=== PATIENT | male | born 1970 | race Caucasian/White ===

== ENCOUNTER 2017-10-15 16:20 | Emergency (ER) | payer SELFPAY ==
--- NOTE | 2017-10-15 17:44 | EDPHYS ---
Physician Documentation [facility] Name: Helio Lord Jr Age: 47 yrs Sex: Male : 1970 Arrival Date: 10/15/2017 Time: 16:21 Bed 5 Private MD: ED Physician Cody Liu HPI: 10/15 17:41 This 47 yrs old Male presents to ER via Ambulatory with complaints of Flu kb Symptoms. 17:41 The patient or guardian reports cough, that is intermittent, described as mild, kb described as moderate, with no sputum, flu symptoms, low-grade fever, myalgias. Onset: The symptoms/episode began/occurred 4 day(s) ago. Severity of symptoms: At their worst the symptoms were moderate, in the emergency department the symptoms are unchanged. Modifying factors: The symptoms are alleviated by nothing, the symptoms are aggravated by nothing. Associated signs and symptoms: Pertinent positives: fever, rhinorrhea, Pertinent negatives: chest pain, diarrhea, ear ache, nausea, sore throat, vomiting. The patient has not experienced similar symptoms in the past, but family has similar symptoms, significant other, daughter. The patient has not recently seen a physician. Historical: - Allergies: 16:37 Morphine (Vomiting); hb - Home Meds: 16:37 None [Active]; hb - PMHx: 16:37 Hepatitis; hb - PSHx: 16:37 None; hb - Immunization history:: Adult Immunizations up to date. - Social history:: Smoking status: Patient uses tobacco products, smokes one pack cigarettes per day. ROS: 17:41 Neck: Negative for injury, pain, and swelling, Cardiovascular: Negative for chest pain, kb palpitations, and edema, Abdomen/GI: Negative for abdominal pain, nausea, vomiting, diarrhea, and constipation, Back: Negative for injury and pain, : Negative for injury, bleeding, discharge, and swelling, MS/Extremity: Negative for injury and deformity, Skin: Negative for injury, rash, and discoloration, Neuro: Negative for headache, weakness, numbness, tingling, and seizure. 17:41 Constitutional: Positive for body aches, chills, fatigue, fever, malaise, Negative for poor PO intake, weight loss. 17:41 ENT: Positive for rhinorrhea, sinus congestion, sore throat. 17:41 Respiratory: Positive for cough, with no reported sputum, Negative for dyspnea on exertion, hemoptysis, orthopnea, pleurisy, shortness of breath, sputum production, wheezing. Exam: 17:41 Constitutional: This is a well developed, well nourished patient who is awake, alert, kb and in no acute distress. Head/Face: Normocephalic, atraumatic. ENT: Nares patent. No nasal discharge, no septal abnormalities noted. Tympanic membranes are normal and external auditory canals are clear. Oropharynx with no redness, swelling, or masses, exudates, or evidence of obstruction, uvula midline. Mucous membranes moist. Neck: Trachea midline, no thyromegaly or masses palpated, and no cervical lymphadenopathy. Supple, full range of motion without nuchal rigidity, or vertebral point tenderness. No Meningismus. Chest/axilla: Normal chest wall appearance and motion. Nontender with no deformity. No lesions are appreciated. Cardiovascular: Regular rate and rhythm with a normal S1 and S2. No gallops, murmurs, or rubs. Normal PMI, no JVD. No pulse deficits. Respiratory: Lungs have equal breath sounds bilaterally, clear to auscultation and percussion. No rales, rhonchi or wheezes noted. No increased work of breathing, no retractions or nasal flaring. Abdomen/GI: Soft, non-tender, with normal bowel sounds. No distension or tympany. No guarding or rebound. No evidence of tenderness throughout. Skin: Warm, dry with normal turgor. Normal color with no rashes, no lesions, and no evidence of cellulitis. MS/ Extremity: Pulses equal, no cyanosis. Neurovascular intact. Full, normal range of motion. Neuro: Awake and alert, GCS 15, oriented to person, place, time, and situation. Cranial nerves II-XII grossly intact. Motor strength 5/5 in all extremities. Sensory grossly intact. Cerebellar exam normal. Normal gait. Vital Signs: 16:37 BP 126 / 89; Pulse 96; Resp 18; Temp 99.7; Pulse Ox 97% on R/A; Weight 80.74 kg; Height hb 5 ft. 8 in. (172.72 cm); Pain 8/10; 16:37 Body Mass Index 27.06 (80.74 kg, 172.72 cm) hb MDM: 16:42 Patient medically screened. kb 17:41 Data reviewed: vital signs, nurses notes. Data interpreted: Pulse oximetry: on room air kb is 97 %. Interpretation: normal. Counseling: I had a detailed discussion with the patient and/or guardian regarding: the historical points, exam findings, and any diagnostic results supporting the discharge/admit diagnosis, lab results, the need for outpatient follow up, a family practitioner, to return to the emergency department if symptoms worsen or persist or if there are any questions or concerns that arise at home. 10/15 16:47 Order name: Flu; Complete Time: 17:31 kb 10/15 16:47 Order name: Strep; Complete Time: 17:31 kb 10/15 17:28 Order name: Throat Culture EDMS Administered Medications: No medications were administered Disposition: 10/16 06:59 Co-signature as Attending Physician, Cody Liu MD I agree with the assessment and cindy plan of care. Disposition: 10/15/17 17:43 Discharged to Home. Impression: Acute upper respiratory infection, unspecified. - Condition is Stable. - Discharge Instructions: Upper Respiratory Infection, Adult, [id number]. - Medication Reconciliation Form, Thank You Letter, Antibiotic Education, Prescription Opioid Use form. - Follow up: Emergency Department; When: As needed; Reason: Worsening of condition. Follow up: Private Physician; When: 2 - 3 days; Reason: Recheck today's complaints, Continuance of care, Re-evaluation by your physician. Signatures: Dispatcher [employer] EDRosario Encarnacion, PATTI-C RESOURCE PROTECTION SPECIALIST-Ckb Uyen Bridges RN RN sv Anderson, Corey, MD MD cha Baxter, Heather, RN RN
--- NOTE | 2017-10-15 17:44 | ER ---
Nurse's Notes [facility] Name: Helio Lord Jr Age: 47 yrs Sex: Male : 1970 Arrival Date: 10/15/2017 Time: 16:21 Bed 5 Private MD: Diagnosis: Acute upper respiratory infection, unspecified Presentation: 10/15 16:34 Presenting complaint: Patient states: Chills, body aches, fatigue, sinus congestin, hb productive cough with yellow sputum x 4 days. Transition of care: patient was not received from another setting of care. Onset of symptoms is unknown. Care prior to arrival: None. 16:34 Method Of Arrival: Ambulatory hb 16:34 Acuity: TIERNEY 3 hb Historical: - Allergies: 16:37 Morphine (Vomiting); hb - Home Meds: 16:37 None [Active]; hb - PMHx: 16:37 Hepatitis; hb - PSHx: 16:37 None; hb - Immunization history:: Adult Immunizations up to date. - Social history:: Smoking status: Patient uses tobacco products, smokes one pack cigarettes per day. Screenin:55 Abuse screen: Denies threats or abuse. Denies injuries from another. Nutritional sv screening: No deficits noted. Tuberculosis screening: No symptoms or risk factors identified. Fall Risk None identified. Assessment: 16:54 General: Appears in no apparent distress. comfortable, well developed, Behavior is sv calm, cooperative, appropriate for age. Pain: Complains of pain in throat Pain currently is 8 out of 10 on a pain scale. Neuro: Level of Consciousness is awake, alert, obeys commands, Oriented to person, place, time, situation, Moves all extremities. Full function Gait is steady, Speech is normal. Respiratory: Reports cough that is productive, yellow x 4 days Airway is patent Respiratory effort is even, unlabored, Respiratory pattern is regular, symmetrical. EENT: Reports nasal congestion nasal discharge. Derm: Skin is normal. Musculoskeletal: Range of motion: intact in all extremities. 16:55 General: Reports fatigue for >3 days. sv 17:47 Reassessment: Patient appears in no apparent distress at this time. No changes from sv previously documented assessment. Patient and/or family updated on plan of care and expected duration. Pain level reassessed. Patient is alert, oriented x 3, equal unlabored respirations, skin warm/dry/pink. Vital Signs: 16:37 BP 126 / 89; Pulse 96; Resp 18; Temp 99.7; Pulse Ox 97% on R/A; Weight 80.74 kg; Height hb 5 ft. 8 in. (172.72 cm); Pain 8/10; 16:37 Body Mass Index 27.06 (80.74 kg, 172.72 cm) hb ED Course: 16:21 Patient arrived in ED. as 16:35 Triage completed. hb 16:37 Arm band placed on left wrist. hb 16:41 Rosario Jeong FNP-C is PHCP. kb 16:41 Cody Liu MD is Attending Physician. kb 16:47 Uyen Bridges, FILOMENA is Primary Nurse. sv 16:54 Flu and/or RSV swab sent to lab. Strep swab sent to lab. sv 16:55 Awaiting lab results. sv 16:55 Patient has correct armband on for positive identification. Bed in low position. Call sv light in reach. Door closed. Head of bed elevated. 17:47 No provider procedures requiring assistance completed. Patient did not have IV access sv during this emergency room visit. Administered Medications: No medications were administered Outcome: 17:43 Discharge ordered by MD. kb 17:47 Discharged to home ambulatory, with family. sv 17:47 Condition: stable 17:47 Discharge instructions given to patient, Instructed on discharge instructions, follow up and referral plans. Demonstrated understanding of instructions, follow-up care. 17:48 Patient left the ED. sv Signatures: Rosario Jeong FNP-C DISC PAD GRINDING MACHINE FEEDER-Ckb Uyen Bridges, FILOMENA BUTT Echo Mattson Heather, RN RN Corrections: (The following items were deleted from the chart) 16:55 16:54 Respiratory: Reports cough that is non-productive, Airway is patent Respiratory sv effort is even, unlabored, Respiratory pattern is regular, symmetrical, sv
== END 2017-10-15 17:48 | disposition home or self-care (01) ==
LOC: ER 16:20
DX: J06.9 Acute upper respiratory infection, unspecified (principal); F17.210 Nicotine dependence, cigarettes, uncomplicated; Z88.5 Allergy status to narcotic agent
CPT/HCPCS: 87070; 87081; 87804; 99283

== ENCOUNTER 2020-10-16 16:08 | Emergency (ER) | payer SELFPAY ==
--- OUTSIDE RECORDS SUMMARY | 2020-10-16 16:12 | XMS REPORT | Continuity of Care Document ---
:1970 Author Organization [facility] t Address [address] [place] [address] Care Team Providers Name Role Phone Aureliano ARMSTRONG Attending Clinician Problems This patient has no known problems. Allergies, Adverse Reactions, Alerts This patient has no known allergies or adverse reactions. Medications This patient has no known medications. Procedures This patient has no known procedures. Encounters Start End Encounter Admission Attending Care Care Encounter Source Date/Time Date/Time Type Type Clinicians Facility Department ID 2019-02-22 2019-02-22 Emergency Aureliano, TRAUMA [id number] 11:33:52 15:08:00 [facility] [id number] Results This patient has no known results.
[2020-10-16] MEDS ORDERED: FENTANYL CITR 100 MCG/2 ML ONE (16:43)
--- NOTE | 2020-10-16 17:11 | RAD REPORT ---
EXAM DESCRIPTION: CT - Chest Abdomen Pelvis W Cont - 10/16/2020 4:53 pm CLINICAL HISTORY: Chest and abdomen pain. PAIN COMPARISON: No comparisons TECHNIQUE: Approximately 100 mL nonionic IV contrast was administered to the patient. All CT scans are performed using dose optimization technique as appropriate and may include automated exposure control or mA/KV adjustment according to patient size. FINDINGS: The lungs are clear.No pleural or pericardial effusion.No intrathoracic adenopathy. Several vague low-density hepatic lesions are present, the largest the right lobe measuring 2 cm. No biliary dilatation seen. The spleen, pancreas, adrenal glands and kidneys are within normal limits. No bowel obstruction, free air, free fluid or abscess. Normal appendix. Moderate fat containing right inguinal hernia. No pathologic lymphadenopathy in the abdomen or pelvis. No acute fracture is evident. IMPRESSION: No acute abnormality is detected. Several vague low-density hepatic lesions are present. Followup nonemergent MRI liver protocol would be recommended for further assessment.
[2020-10-16 17:17] LABS: Absolute Lymphocytes (CBC) 5.5 K/uL (0.7-4.9); Hematocrit 44.3 % (39.6-49.0); Lymphocytes % 34.4 % (15.3-44.8); MPV 9.2 fL (7.6-11.3); RBC Red Blood Cell Count 4.89 M/uL (4.33-5.43)
[2020-10-16 17:26] LABS: Potassium 3.7 mmol/L (3.5-5.1)
--- NOTE | 2020-10-16 17:27 | RAD REPORT ---
EXAM DESCRIPTION: RAD - Femur Right - 10/16/2020 5:20 pm CLINICAL HISTORY: PAIN COMPARISON: No comparisons FINDINGS: No acute fracture or dislocation is seen.
[2020-10-16] MEDS ORDERED: NA CHLORIDE 0.9% 1,000 ML ONE (18:08)
[2020-10-16] MEDS ORDERED: DIAZEPAM 10 MG/2 ML INJ SYRINGE ONE (19:11)
[2020-10-16] MEDS ORDERED: KETOROLAC 30 MG/ML INJ ONE (19:12)
--- NOTE | 2020-10-16 19:30 | ER ---
Nurse's Notes [facility] Name: Helio Lord Jr Age: 50 yrs Sex: Male : 1970 Arrival Date: 10/16/2020 Time: 16:09 Bed 2 Private MD: Diagnosis: Strain of muscle, fascia and tendon of right hip;Contusion of right hip Presentation: 10/16 16:17 Chief complaint:. Care prior to arrival: None. jl7 16:17 Acuity: TIERNEY 2 jl7 16:17 Method Of Arrival: Stretcher jl7 16:17 Chief complaint: Patient states: a 300 lb pole fell on his right side, c/o right hip jl7 and right flank pain. Mechanism of Injury: blunt trauma to right side. Trauma event details: Injury occurred in the [facility], Injury occurred: in a public building. Injury occurred: October 16, 2020 Injury occurred at: 15:15. 16:37 Coronavirus screen: Client denies travel out of the [place] in the last 14 days. At this jl7 time, the client does not indicate any symptoms associated with coronavirus-19. Ebola Screen: No symptoms or risks identified at this time. Initial Sepsis Screen: Does the patient meet any 2 criteria? No. Patient's initial sepsis screen is negative. Does the patient have a suspected source of infection? No. Patient's initial sepsis screen is negative. Risk Assessment: Do you want to hurt yourself or someone else? Patient reports no desire to harm self or others. Onset of symptoms was October 16, 2020. Historical: - Allergies: 16:38 Morphine (Vomiting); jl7 - PMHx: 16:38 Hepatitis; jl7 - PSHx: 16:38 None; jl7 - Immunization history:: Adult Immunizations up to date. - Social history:: Smoking status: Patient reports the use of cigarette tobacco products, smokes one pack cigarettes per day. Patient uses street drugs, marijuana. - Immunization history: Last tetanus immunization: unknown. Screenin:17 Abuse screen: Denies threats or abuse. Denies injuries from another. Tuberculosis jl7 screening: No symptoms or risk factors identified. 18:52 Nutritional screening: No deficits noted. Fall Risk IV access (20 points). Total Ray jl7 Fall Scale indicates No Risk (0-24 pts). Primary Survey: 16:17 NO uncontrolled hemorrhage observed. A: The patient is alert. Airway: patent. jl7 Breathing/Chest: Respiratory pattern: tachypnea, Respiratory effort: spontaneous, unlabored, Chest inspection: symmetrical rise and fall of the chest. Circulation: Skin color: pink. Disability Alert. Exposure/Environment: All clothing and personal items were removed. Forensic evidence collection is not deemed to be indicated at this time. Items placed in patient belonging bag. There is no evidence of uncontrolled external bleeding. No obvious injuries are noted at this time. A warming method has been applied: A warm blanket has been provided to the patient. 16:45 Reassessment Airway Airway Patent Breathing/Chest Respiratory pattern Regular jl7 Respiratory effort Spontaneous Unlabored Circulation Color [place] Disability Alert. Assessment: 16:17 General: Appears in no apparent distress. uncomfortable, Behavior is cooperative, jl7 appropriate for age, anxious. Pain: Complains of pain in anterior aspect of right lateral abdomen and posterior aspect of right lateral abdomen Pain currently is 10 out of 10 on a pain scale. Neuro: Level of Consciousness is awake, alert, obeys commands, Oriented to person, place, time, situation. Cardiovascular: Patient's skin is warm and dry. Respiratory: Airway is patent Respiratory effort is even, unlabored, Respiratory pattern is symmetrical, tachypnea. Derm: Skin is pink, warm \T\ dry. Musculoskeletal:. Musculoskeletal: Tenderness present in anterior aspect of right lateral abdomen, posterior aspect of right lateral abdomen and pelvis. 17:00 Reassessment: Patient appears in no apparent distress at this time. Patient and/or jl7 family updated on plan of care and expected duration. Pain level reassessed. Patient is alert, oriented x 3, equal unlabored respirations, skin warm/dry/pink. 18:00 Reassessment: ERP at bedside discussing results and POC. jl7 19:00 Reassessment: Patient and/or family updated on plan of care and expected duration. Pain ea level reassessed. Patient is alert, oriented x 3, equal unlabored respirations, skin warm/dry/pink. 20:00 Reassessment: Patient and/or family updated on plan of care and expected duration. Pain ea level reassessed. Patient is alert, oriented x 3, equal unlabored respirations, skin warm/dry/pink. Discharge instruction given to patient verbalized the understanding of instruction. Pt left ED via wheelchair accompanied by family. Vital Signs: 16:17 BP 137 / 115; Pulse 89; Resp 22; Temp 97.9; Pulse Ox 98% ; Pain 10/10; jl7 16:45 BP 115 / 78; Pulse 64; Resp 17; Pulse Ox 97% ; Pain 5/10; jl7 17:30 BP 115 / 78; Pulse 64; Resp 15; Pulse Ox 97% ; jl7 18:09 BP 119 / 76; Pulse 65; Resp 17; Pulse Ox 97% ; jl7 18:45 BP 124 / 84; Pulse 67; Resp 15; Pulse Ox 98% ; jl7 Sonny Coma Score: 16:17 Eye Response: spontaneous(4). Verbal Response: oriented(5). Motor Response: obeys jl7 commands(6). Total: 15. 16:45 Eye Response: spontaneous(4). Verbal Response: oriented(5). Motor Response: obeys jl7 commands(6). Total: 15. 17:30 Eye Response: spontaneous(4). Verbal Response: oriented(5). Motor Response: obeys jl7 commands(6). Total: 15. 18:45 Eye Response: spontaneous(4). Verbal Response: oriented(5). Motor Response: obeys jl7 commands(6). Total: 15. Trauma Score (Adult): 16:17 Eye Response: spontaneous(1); Verbal Response: oriented(1); Motor Response: obeys jl7 commands(2); Systolic BP: > 89 mm Hg(4); Respiratory Rate: 10 to 29 per min(4); [place] Score: 15; Trauma Score: 12 18:09 Eye Response: spontaneous(1); Verbal Response: oriented(1); Motor Response: obeys jl7 commands(2); Systolic BP: > 89 mm Hg(4); Respiratory Rate: 10 to 29 per min(4); [place] Score: 15; Trauma Score: 12 ED Course: 16:09 Patient arrived in ED. as 16:17 Patient has correct armband on for positive identification. Placed in gown. Bed in low jl7 position. Call light in reach. Side rails up X2. 16:17 Pulse ox on. NIBP on. jl7 16:17 Warm blanket given. jl7 16:17 Patient maintains SpO2 saturation greater than 95% on room air. Thermoregulation: warm jl7 blanket given to patient. 16:17 Initial lab(s) drawn, by me, sent to lab. Inserted saline lock: 20 gauge in right jl7 antecubital area, using aseptic technique. Blood collected. 16:18 Otis Angulo NP is PHCP. pm1 16:18 Lynn Simon MD is Attending Physician. pm1 16:31 Carol Sims RN is Primary Nurse. jl7 16:31 Triage completed. jl7 16:38 Arm band placed on right wrist. jl7 16:52 CT Chest, Abdomen, Pelvis - W/Contrast In Process Unspecified. EDMS 17:18 Femur Right XRAY In Process Unspecified. EDMS 19:29 Sundeep Mcnair MD is Referral Physician. pm1 20:10 IV discontinued, intact, bleeding controlled, No redness/swelling at site. Pressure ea dressing applied. 20:16 No provider procedures requiring assistance completed. ea Administered Medications: 16:45 Drug: fentaNYL (PF) 50 mcg Route: IVP; Site: right antecubital; jl7 17:00 Follow up: Response: No adverse reaction; Pain is decreased jl7 17:50 Drug: NS 0.9% 1000 ml Route: IV; Rate: 1000 ml; Site: right antecubital; jl7 17:50 Drug: fentaNYL (PF) 50 mcg Route: IVP; Site: right antecubital; jl7 18:00 Follow up: Response: No adverse reaction; Pain is decreased jl7 18:57 Drug: TORadol - Ketorolac 15 mg Route: IVP; Site: right antecubital; jl7 20:15 Follow up: Response: No adverse reaction ea 19:01 Drug: Valium (diazepam) 5 mg Route: IVP; Site: right antecubital; jl7 20:00 Follow up: Response: No adverse reaction ea 19:09 Not Given (Patient Refused): Zofran (Ondansetron) 4 mg IVP once; over 2 minutes jl7 Outcome: 19:29 Discharge ordered by . pm1 20:07 Patient left the ED. ea 20:10 Discharged to home via wheelchair, with family. ea 20:10 Condition: stable 20:10 Discharge instructions given to patient, Instructed on discharge instructions, follow up and referral plans. medication usage, Demonstrated understanding of instructions, follow-up care, medications. Signatures: Dispatcher [employer] Echo Garcia Patrick, CLOTH WINDER CLOTH WINDER pm1 Carol Sims RN RN [id number] Clementina Forrest RN RN ea Corrections: (The following items were deleted from the chart) 18:51 18:09 BP 199 / 76; Pulse 65bpm; Resp 17bpm; Pulse Ox 97%; leon quintero
--- NOTE | 2020-10-16 19:30 | EDPHYS ---
Physician Documentation [facility] Name: Helio Lord Jr Age: 50 yrs Sex: Male : 1970 Arrival Date: 10/16/2020 Time: 16:09 Bed 2 Private MD: ED Physician Lynn Simon HPI: 10/16 16:35 This 50 yrs old Male presents to ER via Stretcher with complaints of Hip pm1 Injury. 16:35 The patient or guardian reports pain. that occurred outdoors, sustained from a direct pm1 blow, by a heavy object, There is no obvious deformity, There is no radiation of the patient's discomfort. Patient reports pain with trying to stand on right leg. The complaints affect the right hip. Onset: The symptoms/episode began/occurred just prior to arrival. Modifying factors: The symptoms are alleviated by remaining still, the symptoms are aggravated by weight bearing. Associated signs and symptoms: Loss of consciousness: the patient experienced no loss of consciousness, Pertinent negatives: abdominal pain, chest pain, headache, head injury, neck pain. Severity of symptoms: in the emergency department the symptoms are unchanged. The patient has not experienced similar symptoms in the past. Patient was outside his truck and his cargo that weighs about 300-400 pounds was sliding off. He instinctively attempted to catch it to prevent it from hitting his right leg, but it hit his right hip. The impact caused him to spin to the right side and he fell down with catching himself with both hands. Did not injure his head or neck. Historical: - Allergies: 16:38 Morphine (Vomiting); jl7 - PMHx: 16:38 Hepatitis; jl7 - PSHx: 16:38 None; jl7 - Immunization history:: Adult Immunizations up to date. - Social history:: Smoking status: Patient reports the use of cigarette tobacco products, smokes one pack cigarettes per day. Patient uses street drugs, marijuana. - Immunization history: Last tetanus immunization: unknown. ROS: 16:49 Constitutional: Negative for fever, chills, and weight loss, Cardiovascular: Negative pm1 for chest pain, palpitations, and edema, Respiratory: Negative for shortness of breath, cough, wheezing, and pleuritic chest pain, Abdomen/GI: Negative for abdominal pain, nausea, vomiting, diarrhea, and constipation, Back: Negative for injury and pain. 16:49 Skin: Negative for injury, rash, and discoloration, Neuro: Negative for headache, weakness, numbness, tingling, and seizure. 16:49 MS/extremity: Positive for pain, of the right leg and right hip. Exam: 16:49 Constitutional: This is a well developed, well nourished patient who is awake, alert, pm1 and in no acute distress. Head/Face: Normocephalic, atraumatic. 16:49 Neck: Trachea midline, no thyromegaly or masses palpated, and no cervical lymphadenopathy. Supple, full range of motion without nuchal rigidity, or vertebral point tenderness. No Meningismus. Chest/axilla: Normal chest wall appearance and motion. Nontender with no deformity. No lesions are appreciated. 16:49 Skin: Warm, dry with normal turgor. Normal color with no rashes, no lesions, and no evidence of cellulitis. 16:49 Cardiovascular: Exam negative for acute changes, Rate: normal, Rhythm: regular, Pulses: no pulse deficits are appreciated. 16:49 Respiratory: Exam negative for acute changes, respiratory distress, shortness of breath. 16:49 Abdomen/GI: Exam negative for acute changes, Inspection: abdomen appears normal, Palpation: abdomen is soft and non-tender. 16:49 Back: Exam negative for acute changes, pain, is absent, normal spinal alignment noted, vertebral tenderness, is not appreciated. 16:49 Musculoskeletal/extremity: Extremities: all appear grossly normal, with no appreciated pain with palpation, ROM: intact in all extremities. 16:49 Neuro: Exam negative for acute changes, Orientation: is normal, Mentation: is normal, Motor: is normal, moves all fours, Sensation: is normal, no obvious gross deficits. Vital Signs: 16:17 BP 137 / 115; Pulse 89; Resp 22; Temp 97.9; Pulse Ox 98% ; Pain 10/10; jl7 16:45 BP 115 / 78; Pulse 64; Resp 17; Pulse Ox 97% ; Pain 5/10; jl7 17:30 BP 115 / 78; Pulse 64; Resp 15; Pulse Ox 97% ; jl7 18:09 BP 119 / 76; Pulse 65; Resp 17; Pulse Ox 97% ; jl7 18:45 BP 124 / 84; Pulse 67; Resp 15; Pulse Ox 98% ; jl7 Sonny Coma Score: 16:17 Eye Response: spontaneous(4). Verbal Response: oriented(5). Motor Response: obeys jl7 commands(6). Total: 15. 16:45 Eye Response: spontaneous(4). Verbal Response: oriented(5). Motor Response: obeys jl7 commands(6). Total: 15. 17:30 Eye Response: spontaneous(4). Verbal Response: oriented(5). Motor Response: obeys jl7 commands(6). Total: 15. 18:45 Eye Response: spontaneous(4). Verbal Response: oriented(5). Motor Response: obeys jl7 commands(6). Total: 15. Trauma Score (Adult): 16:17 Eye Response: spontaneous(1); Verbal Response: oriented(1); Motor Response: obeys jl7 commands(2); Systolic BP: > 89 mm Hg(4); Respiratory Rate: 10 to 29 per min(4); Sonny Score: 15; Trauma Score: 12 18:09 Eye Response: spontaneous(1); Verbal Response: oriented(1); Motor Response: obeys jl7 commands(2); Systolic BP: > 89 mm Hg(4); Respiratory Rate: 10 to 29 per min(4); [place] Score: 15; Trauma Score: 12 MDM: 16:24 Patient medically screened. pm1 19:25 ED course: Negative CT abdomen/pelvis for acute finding, negative femur x-ray. Patient pm1 actively able to flex and extend right hip, but with pain. Will discharged patient with crutches for follow up with orthopedics . 19:28 Data reviewed: vital signs. Data interpreted: Pulse oximetry: on room air is 98 %. pm1 Interpretation: normal. Counseling: I had a detailed discussion with the patient and/or guardian regarding: the historical points, exam findings, and any diagnostic results supporting the discharge/admit diagnosis, lab results, radiology results, the need for outpatient follow up, a orthopedic surgeon, to return to the emergency department if symptoms worsen or persist or if there are any questions or concerns that arise at home. 10/16 16:26 Order name: Basic Metabolic Panel; Complete Time: 17:47 pm1 10/16 16:26 Order name: CBC with Diff; Complete Time: 17:47 pm1 10/16 16:26 Order name: Type And Screen; Complete Time: 19:13 pm1 10/16 16:26 Order name: CT Chest, Abdomen, Pelvis - W/Contrast; Complete Time: 17:20 pm1 10/16 16:26 Order name: Femur Right XRAY; Complete Time: 17:47 pm1 10/16 19:52 Order name: ABO/RH no charge EDMS 10/16 16:26 Order name: Labs collected and sent; Complete Time: 16:49 pm1 10/16 16:26 Order name: IV Saline Lock; Complete Time: 16:49 pm1 10/16 18:22 Order name: Labs - recollect needed: collect abo\E\rh no charge; Complete Time: 19:01 bd Administered Medications: 16:45 Drug: fentaNYL (PF) 50 mcg Route: IVP; Site: right antecubital; jl7 17:00 Follow up: Response: No adverse reaction; Pain is decreased jl7 17:50 Drug: NS 0.9% 1000 ml Route: IV; Rate: 1000 ml; Site: right antecubital; jl7 17:50 Drug: fentaNYL (PF) 50 mcg Route: IVP; Site: right antecubital; jl7 18:00 Follow up: Response: No adverse reaction; Pain is decreased jl7 18:57 Drug: TORadol - Ketorolac 15 mg Route: IVP; Site: right antecubital; jl7 20:15 Follow up: Response: No adverse reaction ea 19:01 Drug: Valium (diazepam) 5 mg Route: IVP; Site: right antecubital; jl7 20:00 Follow up: Response: No adverse reaction ea 19:09 Not Given (Patient Refused): Zofran (Ondansetron) 4 mg IVP once; over 2 minutes jl7 Disposition: 10/17 18:45 Co-signature as Attending Physician, Lynn Simon MD. ma2 Disposition: 10/16/20 19:29 Discharged to Home. Impression: Strain of muscle, fascia and tendon of right hip, Contusion of right hip. - Condition is Stable. - Discharge Instructions: Contusion, Crutch Use, Muscle Strain. - Prescriptions for Zofran ODT 4 mg Oral tablet,disintegrating - place 1 tablet by TRANSLINGUAL route every 8 hours As needed; 20 tablet. Tylenol- Codeine #3 300-30 mg Oral Tablet - take 2 tablets by ORAL route every 4-6 hours As needed; 20 tablet. - Medication Reconciliation Form, Thank You Letter, Antibiotic Education, Prescription Opioid Use, Work release form form. - Follow up: Emergency Department; When: As needed; Reason: Worsening of condition. Follow up: Private Physician; When: 2 - 3 days; Reason: Recheck today's complaints, Continuance of care, Re-evaluation by your physician. Follow up: Sundeep Mcnair MD; When: 2 - 3 days; Reason: Recheck today's complaints, Continuance of care, Re-evaluation by your physician. - Problem is new. - Symptoms have improved. Signatures: Dispatcher [employer] EDMS Jeannie Duran Patrick, NP [employer] A DRIVER pm1 Carol Sims RN RN jl7 Clementina Forrest RN RN Lynn Lopez MD MD ma2 Corrections: (The following items were deleted from the chart) 10/16 19:07 16:26 Urine Dipstick-Ancillary ordered. pm1 jl7 20:07 19:29 10/16/2020 19:29 Discharged to Home. Impression: Strain of muscle, fascia and ea tendon of right hip; Contusion of right hip. Condition is Stable. Forms are Medication Reconciliation Form, Thank You Letter, Antibiotic Education, Prescription Opioid Use. Follow up: Emergency Department; When: As needed; Reason: Worsening of condition. Follow up: Private Physician; When: 2 - 3 days; Reason: Recheck today's complaints, Continuance of care, Re-evaluation by your physician. Follow up: Dr. Sundeep Mcnair; When: 2 - 3 days; Reason: Recheck today's complaints, Continuance of care, Re-evaluation by your physician. Problem is new. Symptoms have improved. pm1
[2020-10-16 21:11] VITALS: TEMP 97.9
[2020-10-20 12:34] VITALS: BP 124/84; O2SAT 98
== END 2020-10-16 20:07 | disposition home or self-care (01) ==
LOC: ER 16:08
DX: S76.011A Strain of muscle, fascia and tendon of right hip, initial encounter (principal); W18.09XA Striking against other object with subsequent fall, initial encounter; Y93.89 Activity, other specified; Y92.89 Other specified places as the place of occurrence of the external cause; Z88.5 Allergy status to narcotic agent; F17.210 Nicotine dependence, cigarettes, uncomplicated
CPT/HCPCS: 36415; 71260; 74177; 80048; 85025; 86850; 86900; 86901; 96374; 96375; 99284; J3010; J3360; J7030; Q9967

== ENCOUNTER 2024-10-27 10:23 | Emergency (ER) | payer OTHER ==
--- OUTSIDE RECORDS SUMMARY | 2024-10-27 10:28 | XMS REPORT | Continuity of Care Document ---
Author Name Unknown Address [address] [place] [address] [facility] Address [address] [place] [address] Care Team Providers Care Habilitation Training Specialist Name Role Phone PATTI DELGADO Primary Care Physician + ROBERT ALFARO Attending Clinician Unavailable NITIN RUFF Attending Clinician Unavailab NIGEL Vann Attending Clinician Unavailable Nigel Perla MD Attending Clinician [phone] Cynthia Queen Attending Clinician [phone] NIGEL PERLA Admitting Clinician Unavailable Problems Condition Name Condition Details Condition Category Status Onset Date Resolution Date Last Treatment Date Treating Clinician Comments Source Depressive disorder Depressive Disorder Problem Active 02-08 00:00: 00 [facility] Attention deficit hyperactiv ity disorder Attention Deficit Hyperactiv ity Disorder Problem Active 02-08 00:00: 00 [facility] No known active problems No known active problems Disease [facility] Allergies, Adverse Reactions, Alerts Allergy Name Allergy Type Status Severity Reaction(s) Onset Date Inactive Date Treating Clinician Comments Source Morphine ([id number]) Allergy to substanc e Active Severe VOMITING A LOT 02-09 00:00: 00 [facility] Morphine Propensi ty to adverse reaction s Active Nausea and/or Vomiting 02-22 00:00: 00 [facility] MORPHINE DRUG INGREDI Active N/V 02-22 00:00: 00 [facility] Social History Social Habit Start Date Stop Date Quantity Comments Source Sex Assigned At 1970 00:00:00 1970 00:00:00 [facility] Smoking Status Start Date Stop Date Source Light Tobacco Smoker [facility] Tobacco smoking consumption unknown [facility] Medications Ordered Medication Name Filled Medication Name Start Date Stop Date Current Medication? Ordering Clinician Indication Dosage Frequency Signature (SIG) Comments Components Source naproxen (NAPROSYN) tablet 500 mg 01-14 04:45: 00 01-14 03:58 :00 No 500mg 500 mg, Oral, ONCE NOW, 1 dose, On Fri01/13/23 at 2345, Routine [facility] etodolac (LODINE) 400 mg tablet 01-13 00:00: 00 Yes [id number] 400mg Take 1 tablet by mouth in the morning and 1 tablet in the evening. [facility] triamcinolo ne 0.05 % ointment 01-13 00:00: 00 Yes [id number] Apply to area(s) 2 (two) times daily. [facility] esomeprazol e (NEXIUM) 40 mg in NaCl 0.9% (NS) 100 mL MINI-BAG 02-23 14:00: 00 Yes 40mg 40 mg, IV Piggyback, DAILY, First dose on Fri02/23/19 at 0900, Until Discontinu ed, 100 mL [facility] NaCl 0.9% (NS) bolus infusion 1,000 mL 02-22 17:15: 00 02-22 20:08 :00 No 1000mL at 999 mL/hr, 1,000 mL, IV Infusion, ONCE, 1 dose, 02/22/19 at 1215, IFRAH [facility] psyllium (METAMUCIL FIBER SINGLES) 3.4 gram packet 10-20 00:00: 00 Yes 1{packe t} Take 1 Packet by mouth daily. [facility] Augmentin 875 mg-125 mg tablet Take 1 tablet every 12 hours by oral route for 10 days. Augmentin 875 mg-125 mg tablet Take 1 tablet every 12 hours by oral route for 10 days. No 1 Q12H Augmentin 875 mg-125 mg tablet Take 1 tablet every 12 hours by oral route for 10 days. [facility] pantoprazol e 40 mg tablet,therese yed release Take 1 tablet twice a day by oral route for 14 days. pantoprazol e 40 mg tablet,therese yed release Take 1 tablet twice a day by oral route for 14 days. No 1 BID pantoprazo le 40 mg tablet,del ayed release Take 1 tablet twice a day by oral route for 14 days. [facility] Vital Signs Vital Name Observation Time Observation Value Comments S ource BP Systolic 2024-04-12 00:00:00 130 mm[Hg] [facility] Height 2024-04-12 00:00:00 68 [in_i] [facility] Body Weight 2024-04-12 00:00:00 195 [lb_av] [facility] BP Diastolic 2024-04-12 00:00:00 70 mm[Hg] [facility] BMI (Body Mass Index) 2024-04-12 00:00:00 29.6 kg/m2 [facility] Height 2024-03-08 00:00:00 68 [in_i] [facility] Body Weight 2024-03-08 00:00:00 198 [lb_av] [facility] BMI (Body Mass Index) 2024-03-08 00:00:00 30.1 kg/m2 [facility] BP Systolic 2024-03-08 00:00:00 134 mm[Hg] [facility] BP Diastolic 2024-03-08 00:00:00 74 mm[Hg] [facility] Height 2024-02-23 00:00:00 68 [in_i] [facility] BP Diastolic 2024-02-23 00:00:00 70 mm[Hg] [facility] BP Systolic 2024-02-23 00:00:00 130 mm[Hg] [facility] Body Weight 2024-02-23 00:00:00 198 [lb_av] [facility] BMI (Body Mass Index) 2024-02-23 00:00:00 30.1 kg/m2 [facility] Weight 2024-02-16 16:18:00 89.791617 kg [facility] BMI (Body Mass Index) 2024-02-16 16:18:00 30.1 kg/m2 [facility] Height 2024-02-16 16:18:00 172.111389 cm [facility] BMI (Body Mass Index) 2024-02-09 00:00:00 30.2 kg/m2 [facility] Height 2024-02-09 00:00:00 68 [in_i] [facility] BP Systolic 2024-02-09 00:00:00 129 mm[Hg] [facility] Body Weight 2024-02-09 00:00:00 198.7 [lb_av] [facility] BP Diastolic 2024-02-09 00:00:00 78 mm[Hg] [facility] Systolic blood pressure 2023-01-14 04:00:00 120 mm[Hg] [facility] Diastolic blood pressure 2023-01-14 04:00:00 97 mm[Hg] [facility] Heart rate 2023-01-14 04:00:00 75 /min [facility] Respiratory rate 2023-01-14 04:00:00 18 /min [facility] Oxygen saturation in Arterial blood by Pulse oximetry 2023-01-14 04:00:00 96 /min [facility] Body temperature 2023-01-14 02:21:00 37.28 Arti [facility] Body height 2023-01-14 02:21:00 172.7 cm [facility] Body weight 2023-01-14 02:21:00 87.091 kg [facility] BMI 2023-01-14 02:21:00 29.19 kg/m2 [facility] Systolic blood pressure 2019-02-22 19:51:00 124 mm[Hg] [facility] Diastolic blood pressure 2019-02-22 19:51:00 75 mm[Hg] [facility] Heart rate 2019-02-22 19:51:00 61 /min [facility] Body temperature 2019-02-22 19:51:00 36.72 [facility] Respiratory rate 2019-02-22 19:51:00 18 /min [facility] Oxygen saturation in Arterial blood by Pulse oximetry 2019-02-22 19:51:00 100 /min [facility] Body weight 2019-02-22 16:31:00 84.823 kg [facility] Systolic blood pressure 2019-02-22 19:51:00 124 mm[Hg] [facility] Diastolic blood pressure 2019-02-22 19:51:00 75 mm[Hg] [facility] Heart rate 2019-02-22 19:51:00 61 /min [facility] Body temperature 2019-02-22 19:51:00 36.72 [facility] Respiratory rate 2019-02-22 19:51:00 18 /min [facility] Oxygen saturation in Arterial blood by Pulse oximetry 2019-02-22 19:51:00 100 /min [facility] Body weight 2019-02-22 16:31:00 84.823 kg [facility] Procedures Procedure Date / Time Performed Performing Clinician Source CONSENT/REFUSAL FOR DIAGNOSIS AND TREATMENT 2023-01-14 02:21:23 Doctor Unassigned, [place] [facility] NOTICE OF PRIVACY PRACTICES 2023-01-14 02:20:14 Doctor Unassigned, [place] [facility] URINALYSIS 2019-02-22 19:05:00 Cynthia Bedoya [facility] CBC WITH DIFFERENTIAL 2019-02-22 17:24:00 Jasmine Bedoya [facility] HEPATIC FUNCTION PANEL ([id number]) (ALB,T.PRO,BILI T,BU/BC,ALT,AST,ALK PHOS) 2019-02-22 17:23:00 Cynthia Bedoya [facility] BASIC METABOLIC PANEL (NA, K, CL, CO2, GLUCOSE, BUN, CREATININE, CA) 2019-02-22 17:23:00 Cynthia Bedoya [facility] Encounters Start Date/Time End Date/Time Encounter Type Admission Type Attending [facility] Care Department Encounter ID Source 2024-04-12 00:00:00 2024-04-12 00:00:00 Robert Alfaro, DO: [address], [address], [place] [address] , Ph. [phone] [facility] [id number] [facility] 2024-03-18 09:00:00 2024-03-18 09:00:00 Outpatient ROBERT HARE [facility] [id number] [facility] 2024-03-08 00:00:00 2024-03-08 00:00:00 Robert Alfaro, DO: [address], [address], [place] [address] , Ph. [phone] [facility] [id number] [facility] 2024-02-23 00:00:00 2024-02-23 00:00:00 Robert Alfaro, DO: [address], [place] [address] , Ph. [phone] [facility] [id number] [facility] 2024-02-16 16:13:00 2024-02-16 18:05:00 Emergency ER NITIN RUFF [facility] [id number] [facility] 2024-02-16 16:13:00 2024-02-16 18:05:00 Departed Emergency Room [facility] [id number] [facility] 2024-02-12 06:40:00 2024-02-12 06:40:00 Outpatient ROBERT HARE [facility] [id number] [facility] 2024-02-12 06:40:00 2024-02-12 06:40:00 Registered Surgical Day Care [facility] [id number] [facility] 2024-02-09 00:00:00 2024-02-09 00:00:00 Robert Alfaro, DO: [address], [address], [place] [address] , Ph. [phone] [facility] surgery [id number] [facility] 2023-01-13 21:37:00 2023-01-13 23:06:00 Emergency X [facility]EL [facility] ERT [id number] [facility] 2023-01-13 21:37:00 2023-01-13 23:06:00 Emergency Nigel Perla [facility] [id number] [facility] 2019-02-22 11:33:52 2019-02-22 15:08:00 Emergency [facility] [id number] [facility] 2019-02-22 11:33:52 2019-02-22 15:08:00 Emergency [facility] [id number] Results Test Description Test Time Test Comments Results Result Co mments Source [facility] GroupBilirubin [id number] 16:42:00* Test Item Value Reference Range Interpretation Comme nts Total Bilirubin (test code = YVM3677) 0.3 [facility] CtrSerum or plasma urea nitrogen measurement (mass/volume)2024-02-16 16:42:00* Test Item Value Reference Range Interpretation Comme nts Blood Urea Nitrogen (test co de = 3094-0) 15 [facility] [id number] 16:42:00* Test Item Value Reference Range Interpretation Comme nts Aspartate Amino Transf (AST/ SGOT) (test code = XKV4800) 22 [facility] CtrCreatinine [id number] 16:42:00* Test Item Value Reference Range Interpretation Comme nts Creatinine (test code = 623516348) 1.20 [facility] CtrEstimated glomerular filtration rate (GFR) czuwcpucavsya1227-96-62 16:42:00* Test Item Value Reference Range Interpretation Comme [facility] Glomerular Filtration Rate C alc (test code = 571116262) > 60.00 [facility] CtrBUN/creatinine [id number] 16:42:00* Test Item Value Reference Range Interpretation Comme nts BUN/Creatinine Ratio (test c ode = 13233387) 12.5 [facility] potassium exsmiymytbd3725-47-90 16:42:00* Test Item Value Reference Range Interpretation Comme nts Potassium Level (test code = 2821-7) 4.4 [facility] [id number] 16:42:00* Test Item Value Reference Range Interpretation Comme nts Carbon Dioxide Level (test c ode = 07280047) 26 [facility] CtrAnion gap dvayppixnot2537-76-15 16:42:00* Test Item Value Reference Range Interpretation Comme nts Anion Gap (test code = 20998307) 16.4 [facility] CtrCalcium [id number] 16:42:00* Test Item Value Reference Range Interpretation Comme nts Calcium Level (test code = 62622877) 9.9 [facility] CtrGlobulin [id number] 16:42:00* Test Item Value Reference Range Interpretation Comme nts Globulin (test code = 239491475) 3.3 [facility] CtrALT (SGPT) ser/gagc6309-32-18 16:42:00* Test Item Value Reference Range Interpretation Comme nts Alanine Aminotransferase (AL T/SGPT) (test code = 1742-6) 23 [facility] KpsPdmgpx9923-41-66 16:42:00* Test Item Value Reference Range Interpretation Comme nts Lipase (test code = 10248253) 33 [facility] CtrALP ser/zwck0746-83-34 16:42:00* Test Item Value Reference Range Interpretation Comme nts Total Alkaline Phosphatase ( test code = 6768-6) 79 [facility] CtrAbsolute eosinophil [id number] 16:38:00* Test Item Value Reference Range Interpretation Comme nts Eosinophils # (Auto) (test c ode = ITP7213) 0.31 [facility] CtrRBC [id number] 16:38:00* Test Item Value Reference Range Interpretation Comme nts Red Blood Count (test code = 76790215) 5.07 [facility] LdnLawyurhjup8527-66-81 16:38:00* Test Item Value Reference Range Interpretation Comme nts Hematocrit (test code = 36223986) 45.9 [facility] CtrMCV (mean corpuscular volume) determination 2024-02-16 16:38:00* Test Item Value Reference Range Interpretation Comme nts Mean Corpuscular Volume (jd t code = 87343-2) 90.5 [facility] CtrMean corpuscular hemoglobin (MCH) determination 2024-02-16 16:38:00* Test Item Value Reference Range Interpretation Comme [facility] Mean Corpuscular Hemoglobin (test code = 68904067) 30.4 [facility] CtrMean corpuscular hemoglobin concentration (MCHC) ymtkzgmmrsaem4357-59-47 16:38:00* Test Item Value Reference Range Interpretation Comme [facility] Mean Corpuscular Hemoglobin Concent (test code = 28937573) 33.6 [facility] CtrRBC distribution width coefficient of variation 2024-02-16 16:38:00* Test Item Value Reference Range Interpretation Comme [facility] Red Cell Distribution Width (test code = 96688891) 13.9 [facility] CtrPlatelet [id number] 16:38:00* Test Item Value Reference Range Interpretation Comme [facility] Platelet Count (test code = 54075359) 395 [facility] CtrMean platelet [id number] 16:38:00* Test Item Value Reference Range Interpretation Comme [facility] Mean Platelet Volume (test c ode = 69605071) 9.4 [facility] CtrNeutrophils seg % [id number] 16:38:00* Test Item Value Reference Range Interpretation Comme [facility] Neutrophils (%) (Auto) (test code = 88255-8) 60.7 [facility] CtrAbsolute immature granulocyte [id number] 16:38:00* Test Item Value Reference Range Interpretation Comme [facility] Absolute Immature Granulocyt e (auto (test code = 40306-0) 0.05 [facility] neutrophils count (number/volume) 2024-02-16 16:38:00* Test Item Value Reference Range Interpretation Comme [facility] Neutrophils # (Auto) (test c ode = 73242-1) 8.83 [facility] CtrAbsolute lymphocyte [id number] 16:38:00* Test Item Value Reference Range Interpretation Comme [facility] Lymphocytes # (Auto) (test c ode = 43076-3) 3.93 [facility] CtrAbsolute basophil [id number] 16:38:00* Test Item Value Reference Range Interpretation Comme [facility] Basophils # (Auto) (test cod e = 67885312) 0.10 [facility] CtrAbsolute NRBC [id number] 16:38:00* Test Item Value Reference Range Interpretation Comme [facility] Nucleated Red Blood Cells # (test code = 005714072) 0 [facility] AyuKytynwznfj0891-34-64 19:19:00* Test Item Value Reference Range Interpretation Comme nts APPEARANCE (test code = 4487908141) Clear Clear COLOR (test code = 5171289383) Yellow Yellow PH (test code = 5091597377) 4.8-8.0 SP GRAVITY (test code = 6839578786) 1.003-1.030 GLU U QUAL (test code = 8765600805) Normal Normal BLOOD (test code = 9724134782) Negative Negative KETONES (test code = 3996733540) Negative Negative PROTEIN (test code = 2887-8) Negative Negative UROBILIN (test code = 3195410039) Normal Normal BILIRUBIN (test code = 4094661650) Negative Negative NITRITE (test code = 5087250461) Negative Negative LEUK YURI (test code = 5483760168) Negative Negative RBC/HPF (test code = 1306890420) See_Comment [Automated Tagwhat] The system which generated this result transmitted reference range: 0 - 3 HPF. The reference range was not used to interpret this result as normal/abnormal. WBC/HPF (test code = 8193322548) <1 See_Comment [Automated Tagwhat] The system which generated this result transmitted reference range: 0 - 5 HPF. The reference range was not used to interpret this result as normal/abnormal. BACTERIA (test code = 1852894614) Negative Negative Lab Interpretation (test code = 55909-6) Normal [facility] Metabolic Panel (NA, K, CL, CO2, GLUCOSE, BUN, CREATININE, CA)2019-02-22 17:50:00* Test Item Value Reference Range Interpretation Comme nts NA (test code = 3537459543) 139 mmol/L 135-145 K (test code = 8501098787) 4.3 mmol/L 3.5-5 CL (test code = 4400849677) 106 mmol/L 98-108 CO2 TOTAL (test code = 0232013711) 27 mmol/L 23-31 AGAP (test code = 3581093736) 2-16 BUN (test code = 3541106417) 14 mg/dL 7-23 GLUCOSE (test code = 3543086001) 88 mg/dL 70-110 CREATININE (test code = 1702312298) 1.03 mg/dL 0.6-1.25 CALCIUM (test code = 4999577641) 9.6 mg/dL 8.6-10.6 eGFR Calculation (Non-) (test code = 2154975658) mL/min/1.73m2 eGFR Calculation () (test code = 6318918990) mL/min/1.73m2 JACINTO (test code = JACINTO) Association of Glomerular Filtration Rate (GFR) and Staging of Kidney Disease*+ ---------+ --------+ +| GFR (mL/min/1.73 m2)?| With Kidney Damage?|?Without Kidney Damage+ -------+ ------+ ---------+|?>90?|?Stage one?|? Normal?+ --------+ -------+ +|?60-89?|?St age two?|? Decreased GFR? + -+ + ---+|?30-59?|?Stage three?|? Stage three? + -+ + ---+|?15-29?|?Stage four? |? Stage four?+ ------+ -----+ --------+|?<15 (or dialysis)?|?Stage five? |? Stage five?+ ------+ -----+ --------+*Each stage assumes the associated GFR level has been in effect for at least three months.?Stages 1 to 5, with or without kidney disease, indicate chronic kidney disease.Notes: Determination of stages one and two (with eGFR >59mL/min/1.73 m2) requires estimation of kidney damage for at least three months as defined by structural or functional abnormalities of the kidney, manifested by either:Pathological abnormalities or Markers of kidney damage (including abnormalities in the composition of the blood or urine or abnormalities in imaging tests). [facility] (ALB, T.PRO, BILI T, BU/BC, ALT, AST, ALK PHOS)2019-02-22 17:50:00* Test Item Value Reference Range Interpretation Comme nts TOTAL BILI (test code = 5867857769) 0.5 mg/dL 0.1-1.1 BILI UNCON (test code = 7752667150) 0.2 mg/dL 0.1-1.1 BILI CONJ (test code = 4393198307) 0.0 mg/dL 0-0.3 T PROTEIN (test code = 2763458515) 7.0 g/dL 6.3-8.2 ALBUMIN (test code = 2737724553) 3.9 g/dL 3.5-5 ALK PHOS (test code = 2900993110) 58 U/L 34-122 ALT(SGPT) (test code = 9653125841) 26 U/L 9-51 AST(SGOT) (test code = 5861979630) 24 U/L 13-40 Lab Interpretation (test cod e = 34396-5) Normal [facility] WITH [id number] 17:42:00* Test Item Value Reference Range Interpretation Comme nts WBC (test code = 6690-2) See_Comment [Automated messa ge] The system which generated this result transmitted reference range: 4.20 - 10.70 10*3/?L. The reference range was not used to interpret this result as normal/abnormal. RBC (test code = 789-8) See_Comment [Automated messa ge] The system which generated this result transmitted reference range: 4.26 - 5.52 10*6/?L. The reference range was not used to interpret this result as normal/abnormal. HGB (test code = 718-7) 14.8 g/dL 12.2-16.4 HCT (test code = 4544-3) 43.6 % 38.4-49.3 MCV (test code = 787-2) 90.6 fL 81.7-95.6 MCH (test code = 785-6) 30.8 pg 26.1-32.7 MCHC (test code = 786-4) 33.9 g/dL 31.2-35 RDW-SD (test code = 28952-9) 44.8 fL 38.5-51.6 RDW-CV (test code = 788-0) 13.3 % 12.1-15.4 PLT (test code = 777-3) See_Comment H [Automated messa ge] The system which generated this result transmitted reference range: 150 - 328 10*3/?L. The reference range was not used to interpret this result as normal/abnormal. MPV (test code = 19427-3) 10.2 fL 9.8-13 NRBC/100 WBC (test code = 1981692790) See_Comment [Automated [employer] ssage] The system which generated this result transmitted reference range: 0.0 - 10.0 /100 WBCs. The reference range was not used to interpret this result as normal/abnormal. NRBC x10^3 (test code = 4163200656) <0.01 See_Comment [Automated messa ge] The system which generated this result transmitted reference range: 10*3/?L. The reference range was not used to interpret this result as normal/abnormal. GRAN MAT (NEUT) % (test code = 770-8) 54.2 % IMM GRAN % (test code = 5961597145) 0.30 % LYMPH % (test code = 736-9) 33.0 % MONO % (test code = 5905-5) 9.3 % EOS % (test code = 713-8) 2.4 % BASO % (test code = 706-2) 0.8 % GRAN MAT x10^3(ANC) (test code = 5993009180) 5.57 10*3/uL 1.99-6.95 IMM GRAN x10^3 (test code = 5985052449) 0.03 10*3/uL 0-0.06 LYMPH x10^3 (test code = 731-0) 3.39 10*3/uL 1.09-3.23 H MONO x10^3 (test code = 742-7) 0.95 10*3/uL 0.36-1.02 EOS x10^3 (test code = 711-2) 0.25 10*3/uL 0.06-0.53 BASO x10^3 (test code = 704-7) 0.08 10*3/uL 0.01-0.09 Lab Interpretation (test code = 23071-0) Abnormal [facility] Notes <thead> Date/Time Note Provider Source [facility] [id number] 18:08:34 [facility] [id number] 18:08:34 Future Tests Future scheduled test information is unavailable Pending Tests <thead> Test Name Ordered Date Scheduled Date Urine Color February 16, 2024 4:13pm Urine Appearance February 16, 2024 4:13pm Urine Glucose (UA) February 16, 2024 4:13pm Urine Bilirubin February 16, 2024 4:13pm Urine Ketones February 16, 2024 4:13pm Urine Specific [place] February 16, 2024 4:13pm Urine Blood February 16, 2024 4:13pm Urine pH February 16, 2024 4:13pm Urine Protein February 16, 2024 4:13pm Urine Urobilinogen February 16, 2024 4:13pm Urine Nitrate February 16, 2024 4:13pm Urine Leukocyte Esterase February 16, 2024 4:13pm Urine RBC February 16, 2024 4:13pm Urine WBC February 16, 2024 4:13pm Urine Bacteria February 16, 2024 4:13pm Urine Culture Reflexed February 16, 2024 4:13pm Future Visits Future appointment information is unavailable Referrals to Other Providers <thead> Reason for Referral Referral Start Date Provider Provider Contact Information Provider Address ROBERT WhitmanDelgado ALFARO , DO Work Phone: [address] [phone] Future Procedures <thead> Procedure Name Ordered Date Scheduled Date URINALYSIS February 16, 2024 4:14pm January 4:13pm NPO except Meds February 16, 2024 4:14pm January 4:13pm Insert Peripheral IV Access February 16, 2024 4:14 pm February 16, 2024 4:13pm Cardiac, BP, Pulse Ox Monitor February 16, 2024 4: 14pm February 16, 2024 4:13pm Remove Clothing/Place in Gown February 16, 2024 4: 14pm February 16, 2024 4:13pm VS - Adult February 16, 2024 4:14pm January 4:13pm Future Medications Future medication information is unavailable Patient Instructions <tbody> Rectal Bleeding, Easy-to-[place] [facility]"
[2024-10-27] MEDS ORDERED: LIDOCAINE 1% 20 ML MDV ONE (11:47)
[2024-10-27] MEDS ORDERED: TDAP (DIPHTH,PERTUSS(ACELL),TET VAC) 0.5 ML VIAL IMVAC ONE (11:47)
--- NOTE | 2024-10-27 13:05 | RAD REPORT ---
EXAM: XR Hand Left 3 View HISTORY: [facility] MAIN thumb laceration Bed Name: 12 COMPARISON: None TECHNIQUE: 3 radiographic views of the LEFT hand submitted. FINDINGS: No evidence of acute fracture or dislocation. Joint alignment is maintained. No soft tissu e swelling is seen.. Moderate degenerative changes at the second and third distal interphalangeal joints, and mild intercarpal degenerative changes. IMPRESSION: No acute bone or joint abnormality. Degenerative changes as above.
--- NOTE | 2024-10-27 13:30 | ER ---
Nurse's Notes [facility] Name: Helio Lord Jr Age: 54 yrs Sex: Male : 1970 Arrival Date: 10/27/2024 Time: 10:23 Bed 12 Private MD: Diagnosis: Laceration with foreign body of left thumb without damage to nail Presentation: 10/27 10:46 Chief complaint: Patient states: saw injury to left thumb. Coronavirus screen: At this iw time, the client does not indicate any symptoms associated with coronavirus-19. Ebola Screen: No symptoms or risks identified at this time. Initial Sepsis Screen: Does the patient meet any 2 criteria? No. Patient's initial sepsis screen is negative. Does the patient have a suspected source of infection? No. Patient's initial sepsis screen is negative. Risk Assessment: Do you want to hurt yourself or someone else? Patient reports no desire to harm self or others. 10:46 Method Of Arrival: Ambulatory iw 10:46 Acuity: TIERNEY 4 iw 13:36 Complicating Factors: There are no complicating factors for this patient. Onset of ll1 symptoms was October 27, 2024. 13:36 Onset of symptoms was October 27, 2024. ll1 Triage Assessment: 13:36 General: Appears in no apparent distress. Behavior is calm, cooperative, appropriate ll1 for age. Injury Description: Laceration. Historical: - Allergies: 10:47 Morphine (Vomiting); iw - PMHx: 10:47 Hepatitis; iw - Immunization history:: Adult Immunizations up to date, Last tetanus immunization: up to date. - Infectious Disease History:: Denies. - Social history:: Smoking status: Patient reports the use of cigarette tobacco products, denies chronic smoking, but will smoke occasionally. Screenin:36 [facility] ED Fall Risk Assessment (Adult) History of falling in the last 3 months, ll1 including since admission No falls in past 3 months (0 pts) Confusion or Disorientation No (0 pts) Intoxicated or Sedated No (0 pts) Impaired Gait No (0 pts) Mobility Assist Device Used No (0 pt) Altered Elimination No (0 pt) Score/Fall Risk Level 0 - 2 = Low Risk Maintained a safe environment, Hourly rounding (assess needs \T\ fall precautionary measures) done. Abuse screen: Denies threats or abuse. Nutritional screening: No deficits noted. Tuberculosis screening: No symptoms or risk factors identified. Assessment: 13:05 Reassessment: No changes from previously documented assessment. student doctor at ll1 for suture repair. 13:51 General: Appears in no apparent distress. Behavior is calm, cooperative, appropriate ll1 for age. Pain: Complains of pain in L thumb Quality of pain is described as aching. Derm: Reports s/p suture repair L thumb. 13:53 Injury Description: Laceration is clean. ll1 13:54 Musculoskeletal: No deficits noted. ll1 Vital Signs: 10:48 BP 148 / 99; Pulse 80; Resp 16; Temp 98.1; Pulse Ox 98% on R/A; Weight 91.63 kg; Pain iw 9/10; 10:48 Pain Scale: Adult iw ED Course: 10:26 Patient arrived in ED. al6 10:33 Paul Frederick DO is Attending Physician. ms3 10:47 Triage completed. iw 10:48 Arm band placed on. iw 12:37 Fareed Paz, FILOMENA is Primary Nurse. ll1 12:40 Hand Left 3 View XRAY In Process Unspecified. EDMS 13:29 Ángel Garcia DO is Referral Physician. ms3 13:36 No provider procedures requiring assistance completed. Patient did not have IV access ll1 during this emergency room visit. 13:53 Patient has correct armband on for positive identification. Provided Education on: ll1 return to ED for 7-10 days fir suture removal. Administered Medications: 12:05 Drug: Boostrix Tdap IM 0.5 ml IM once; as a single dose Route: IM; Site: left deltoid; jl7 13:20 Follow up: Response: No adverse reaction ll1 13:20 Drug: Lidocaine Infiltration (1 %) 10 ml 20 ml Infiltration once; to bedside {Note: ll1 used during suture repair.} Volume: 20 ml; Route: Infiltration; 13:21 Follow up: Response: No adverse reaction ll1 Medication: 13:54 VIS not applicable for this client. ll1 Outcome: 13:29 Discharge ordered by . ms3 13:36 Patient left the ED. ll1 13:36 Discharged to home ambulatory, ll1 13:36 Condition: stable 13:36 Condition: stable 13:36 Discharge instructions given to patient, family, Instructed on discharge instructions, follow up and referral plans. wound care, Demonstrated understanding of instructions, follow-up care, wound care, Signatures: Dispatcher [employer] Sary Gamble, RN RN iw Carol Sims RN RN jl7 Fareed Paz RN RN ll1 Paul Frederick DO DO ms3 Rima Mulligan al6
--- NOTE | 2024-10-27 13:30 | EDPHYS ---
Physician Documentation [facility] Name: Helio Lord Jr Age: 54 yrs Sex: Male : 1970 Arrival Date: 10/27/2024 Time: 10:23 Bed 12 Private MD: ED Physician Paul Frederick HPI: 10/27 10:52 This 54 yrs old Unknown Male presents to ER via Ambulatory with complaints of ms3 Laceration To Hand - thumb. 10:52 54-year-old male with past medical history of hepatitis presents to the emergency ms3 department for left thumb laceration after being cut by saws all approximately 45 minutes prior to arrival. Patient states his tetanus vaccine status is unknown. He states the discomfort is a 9/10. He denies any alleviating or inciting factors.. Historical: - Allergies: 10:47 Morphine (Vomiting); iw - PMHx: 10:47 Hepatitis; iw - Immunization history:: Adult Immunizations up to date, Last tetanus immunization: up to date. - Infectious Disease History:: Denies. - Social history:: Smoking status: Patient reports the use of cigarette tobacco products, denies chronic smoking, but will smoke occasionally. ROS: 10:52 Constitutional: Negative for fever, and chills. Cardiovascular: Negative for chest ms3 pain, and palpitations. Respiratory: Negative for shortness of breath, cough, wheezing, and pleuritic chest pain, Abdomen/GI: Negative for abdominal pain, nausea, vomiting, diarrhea, and constipation, 10:52 Skin: Positive for laceration(s), Exam: 10:52 Constitutional: This is a well developed, well nourished patient who is awake, alert, ms3 and in no acute distress. Chest/axilla: Normal chest wall appearance and motion. Nontender with no deformity. Cardiovascular: Regular rate and rhythm with a normal S1 and S2. No gallops, murmurs, or rubs. Normal PMI, no JVD. No pulse deficits. Respiratory: Lungs have equal breath sounds bilaterally, clear to auscultation and percussion. No rales, rhonchi or wheezes noted. No increased work of breathing, no retractions or nasal flaring. Abdomen/GI: Soft, non-tender, with normal bowel sounds. No distension or tympany. No guarding or rebound. No evidence of tenderness throughout. 10:52 Skin: injury, laceration(s), the wound is approximately 3 cm(s), of the Left thumb, Vital Signs: 10:48 BP 148 / 99; Pulse 80; Resp 16; Temp 98.1; Pulse Ox 98% on R/A; Weight 91.63 kg; Pain iw 9/10; 10:48 Pain Scale: Adult iw Laceration: 16:05 Wound Repair of 4cm ( 1.6in ) subcutaneous laceration to Left thumb. Skin/tissue flap ms3 noted.. Distal neuro/vascular/tendon intact. Anesthesia: Digital block administered with 5 mls of 1% lidocaine. Wound prep: Simple cleansing by nurse. Skin closed with 7 5-0 Prolene using simple sutures and sterile technique. Patient tolerated well. MDM: 10:52 Medical Screening Exam initiated ms3 10:52 Differential diagnosis: superficial laceration, Tetanus vaccination. ms3 16:05 Data reviewed: vital signs, nurses notes, and as a result, I will discharge patient. I ms3 considered the following discharge prescriptions or medication management in the emergency department Medications were administered in the Emergency Department. See MAR. Independent interpretation of the following test(s) in the Emergency Department X-Ray: My interpretation is Left hand x-ray images reviewed by me do not reveal radiopaque foreign body. Counseling: I had a detailed discussion with the patient and/or guardian regarding the historical points, exam findings, and any diagnostic results supporting the discharge/admit diagnosis, radiology results, the need for outpatient follow up, to return to the emergency department if symptoms worsen or persist or if there are any questions or concerns that arise at home. Special discussion: I discussed with the patient/guardian in detail that at this point there is no indication for admission to the hospital. It is understood, however, that if the symptoms persist or worsen the patient needs to return immediately for re-evaluation. ED course: Left thumb laceration sutured without complications. Patient to follow-up with Dr. Garcia in 7 to 10 days for suture removal. All questions were answered. Return precautions discussed include erythema, drainage, worsening symptoms, or any other concerns.. 10/27 11:56 Order name: Hand Left 3 View XRAY; Complete Time: 13:16 ms3 10/27 11:03 Order name: Dressing - Wound; Complete Time: 12:05 ms3 10/27 11:03 Order name: Gloves, Sterile; Complete Time: 12:05 ms3 10/27 11:03 Order name: Prolene, Sutures; Complete Time: 12:05 ms3 10/27 11:03 Order name: Setup Suture Tray; Complete Time: 11:54 ms3 Administered Medications: 12:05 Drug: Boostrix Tdap IM 0.5 ml IM once; as a single dose Route: IM; Site: left deltoid; jl7 13:20 Follow up: Response: No adverse reaction ll1 13:20 Drug: Lidocaine Infiltration (1 %) 10 ml 20 ml Infiltration once; to bedside {Note: ll1 used during suture repair.} Volume: 20 ml; Route: Infiltration; 13:21 Follow up: Response: No adverse reaction ll1 Disposition Summary: 10/27/24 13:29 Discharge Ordered Notes: Location: Home ms3 Condition: Stable ms3 Diagnosis - Laceration with foreign body of left thumb without damage to nail ms3 Followup: ms3 - With: Ángel Garcia, DO - When: 7 - 10 days - Reason: Staple/Suture removal Discharge Instructions: - Discharge Summary Sheet ll1 - Laceration Care, Adult, [id number] ms3 Forms: - Work release form ll1 - Medication Reconciliation Form ms3 - Antibiotic Education ms3 - Prescription Opioid Use ms3 - Patient Portal Instructions ms3 - Leadership Thank You Letter ms3 Signatures: Dispatcher [employer] Sary Gamble RN RN iw Leal, Jahala, RN RN jl7 Lewis, Lynsay, RN RN ll1 Paul Frederick DO DO ms3
[2024-10-27 13:50] VITALS: BP 148/99; TEMP 98.1; O2SAT 98
== END 2024-10-27 13:36 | disposition home or self-care (01) ==
LOC: ER 10:23
PROC: 0JQK3ZZ Repair Left Hand Subcutaneous Tissue and Fascia, Percutaneous Approach (ICD-10-PCS; principal; 2024-10-27)
DX: S61.012A Laceration without foreign body of left thumb without damage to nail, initial encounter (principal); W27.0XXA Contact with workbench tool, initial encounter; Z23 Encounter for immunization; F17.210 Nicotine dependence, cigarettes, uncomplicated; Z88.5 Allergy status to narcotic agent
CPT/HCPCS: 73130; 90715; 96372; 99284; 12002; J2003